=== PATIENT | female | born 1955 | race Caucasian/White ===

== ENCOUNTER 2021-03-01 03:09 | Inpatient (IN) | payer MEDICARE, MEDICAID ==
[~2021-03-01] VITALS: Ht 149.9 cm; Wt 65.0 kg
[2021-03-01] MEDS ORDERED: normal saline 1000ml 1,000 ML IV ONE (04:40)
[2021-03-01] MEDS ORDERED: LIDOcaine Viscous 15ml cup MM ONE (04:40)
[2021-03-01] MEDS ORDERED: mag hydrox/Alum hydrox/simeth 30ml oral suspension PO ONE (04:40)
[2021-03-01] MEDS ORDERED: famotidine/PF 10 mg/ml inj IV ONE (04:40)
[2021-03-01] MEDS ORDERED: pantoprazole 40MG/D5 100ML BAG 100 ML IV ONE (04:40)
[2021-03-01] MEDS ORDERED: proCHLORperazine 10 MG/2 ml inj IV ONE (04:40)
[2021-03-01] MEDS ORDERED: pantoprazole 40MG/NS 100ML BAG 100 ML IV ONE (04:41)
[2021-03-01 05:00] LABS: CLARITY,URINE CLEAR (Clear); GLUCOSE, URINE >=1000 mg/dl (Neg); KETONES,URINE 15 mg/dl (Neg); LEUKOCYTE ESTERASE ,URINE NEGATIVE (Neg); NITRITES, URINE NEGATIVE (Neg); OCCULT BLOOD,URINE SMALL (Neg); PH,URINE 7.5 (4.8-8.0); PROTEIN,URINE 100 mg/dl (Neg); UROBILINOGEN,URINE 0.2 E.U/dL (0.2-1.0)
[2021-03-01 05:03] LABS: COLOR,URINE STRAW (Yellow); UA COLLECTION TYPE FOLEY CATH
[2021-03-01 05:04] LABS: BASOPHILS % (AUTO) 0.2 % (0-1); EOSINOPHILS % (AUTO) 0.1 % (0-6); HEMATOCRIT 34.2 % (35.0-45.0); HEMOGLOBIN 11.7 g/dl (12.0-16.0); LYMPHOCYTES # (AUTO) 0.9 X10'3 (1.1-4.8); MEAN CORPUSCULAR HEMOGLOBIN 30.5 PG (27.0-31.0); MEAN CORPUSCULAR HGB CONC 34.2 g/dL (33.0-36.5); MEAN CORPUSCULAR VOLUME 89.1 FL (78-98); MEAN PLATELET VOLUME 8.3 FL (7.4-10.4); MONOCYTES # (AUTO) 0.2 X10'3 (0-0.9); MONOCYTES % (AUTO) 3.1 % (2-12); NEUTROPHILS % (AUTO) 83.6 % (42-75); PLATELET COUNT 188 X10'3 (140-440); RED BLOOD COUNT 3.84 X10'6 (4.20-5.60); RED CELL DISTRIBUTION WIDTH 14.1 % (11.5-14.5); WHITE BLOOD COUNT 7.2 X10'3 (4.5-11.0)
[2021-03-01 05:10] LABS: BACTERIA,URINE 4+ /HPF (Neg); SQUAMOUS EPITHELIAL CELL,UR FEW /LPF (FEW)
[2021-03-01 05:16] LABS: ALANINE AMINOTRANSFERASE 16 U/L (12-78); ALBUMIN 3.6 G/DL (3.4-5.0); ALBUMIN/GLOBULIN RATIO 0.9 (1.1-1.5); ALKALINE PHOSPHATASE 97 IU/L (46-116); ANION GAP 13 (8-16); ASPARTATE AMINO TRANSFERASE 15 U/L (10-37); BILIRUBIN,TOTAL 0.8 MG/DL (0.1-1.0); BLOOD UREA NITROGEN 16 MG/DL (7-18); BUN/CREATININE RATIO 13.1 (6.6-38.0); CALCIUM 8.9 MG/DL (8.5-10.1); CHLORIDE 99 MMOL/L (99-107); CREATININE 1.22 MG/DL (0.40-0.90); GLUCOSE 344 MG/DL (70-104); POTASSIUM 3.8 MMOL/L (3.5-5.1); SODIUM 137 MMOL/L (135-145); TOTAL CARBON DIOXIDE 25.2 MMOL/L (24-32); TOTAL PROTEIN 7.7 G/DL (6.4-8.2); eGFR 44 ML/MIN
[2021-03-01 05:19] LABS: LIPASE < 50 U/L (73-393)
[2021-03-01] MEDS ORDERED: aspirin 325mg tablet PO ONE (05:30)
[2021-03-01] MEDS ORDERED: heparin 10,000 units/1 ML INJ IV ONE ×2 (05:30→05:35)
[2021-03-01] MEDS ORDERED: heparin 25,000 UNIT/250ml bag 250 ML IV SCH (05:30)
[2021-03-01] MEDS ORDERED: heparin 10,000 units/1 ML INJ IV PRN (05:30)
[2021-03-01] MEDS ORDERED: morphine 4 MG/ML inj SYRINge IV ONE (05:35)
[2021-03-01 06:40] LABS: APTT 23 SECONDS (22-32)
[2021-03-01] MEDS ORDERED: CefTRIAXone/D5W-Rocephin 1gm 50 ML IV ONE (07:15)
[2021-03-01] MEDS ORDERED: MESSAGE TO PHARMACY PO ONE (07:20)
[2021-03-01] MEDS: normal saline 1000ml 1,000 ML IV SCH ×2 (07:20→20:57)
[2021-03-01] MEDS ORDERED: dextrose ORAL solution 15 GM/59 ML bottle PO PRN ×2 (07:20)
[2021-03-01] MEDS ORDERED: ondansetron/PF 4mg/2ml inj IV PRN (07:20)
[2021-03-01] MEDS ORDERED: acetaminophen 325mg tablet PO PRN ×2 (07:20)
[2021-03-01] MEDS ORDERED: glucagon, human recombinant 1mg kit SUBCUT PRN (07:20)
[2021-03-01] MEDS ORDERED: HYDROcodone/acetaminophen 10/325mg tab PO PRN (07:20)
[2021-03-01] MEDS ORDERED: morphine 2 MG/ML inj. syringe IV PRN ×2 (07:20)
[2021-03-01] MEDS ORDERED: dextrose 50%-water 50ml dispensing syringe IV PRN ×2 (07:20)
[2021-03-01] MEDS ORDERED: HYDROcodone/acetaminophen 5mg/325mg tablet PO PRN (07:20)
[2021-03-01] MEDS: CefTRIAXone 2gm/D5W 50ml BAG 50 ML IV SCH (07:26)
[2021-03-01 07:42] LABS: HEMOGLOBIN A1C 8.3 % (4.5-6.2)
--- NOTE | 2021-03-01 07:45 | NUR ---
DAUGHTER KALEB ADKINS [phone]
[2021-03-01 08:21] LABS: COLOR,URINE YELLOW (Yellow); GLUCOSE, URINE >=1000 mg/dl (Neg); KETONES,URINE 15 mg/dl (Neg); LEUKOCYTE ESTERASE ,URINE NEGATIVE (Neg); NITRITES, URINE POSITIVE (Neg); OCCULT BLOOD,URINE SMALL (Neg); PROTEIN,URINE >=300 mg/dl (Neg); UROBILINOGEN,URINE 0.2 E.U/dL (0.2-1.0)
[2021-03-01 08:35] LABS: CLARITY,URINE SLIGHTLY CLOUDY (Clear); UA COLLECTION TYPE FOLEY CATH
[2021-03-01 08:48] LABS: BACTERIA,URINE 3+ /HPF (Neg); RBC,URINE 0-2 /HPF (0-2)
[2021-03-01 08:49] LABS: COARSE GRANULAR CAST 0-3 /LPF (NEGATIVE); MUCUS STRANDS NONE SEEN /LPF (Neg); SQUAMOUS EPITHELIAL CELL,UR NONE SEEN /LPF (FEW)
--- NOTE | 2021-03-01 09:21 | NUR ---
SPOKE WITH DR. WELSH. STATES, STOP THE HEPARIN DRIP PER PHARMACIST REQUEST.
[2021-03-01] MEDS ORDERED: ASPI-611 PO (10:25)
[2021-03-01] MEDS ORDERED: FENT1PAT10 TP (10:25)
[2021-03-01] MEDS ORDERED: LEVO50TA PO (10:25)
[2021-03-01] MEDS ORDERED: ATOR40TA14 PO (10:25)
[2021-03-01] MEDS ORDERED: PANT-47 PO (10:25)
[2021-03-01] MEDS ORDERED: ALLO100T49 PO (10:25)
[2021-03-01] MEDS ORDERED: ONDA4TAB12 PO (10:25)
[2021-03-01] MEDS ORDERED: PROP40TA7 PO (10:25)
[2021-03-01] MEDS ORDERED: LISI20TA28 PO (10:25)
[2021-03-01] MEDS ORDERED: VITA-268 PO (10:25)
[2021-03-01] MEDS ORDERED: CYAN-34 PO (10:33)
--- NOTE | 2021-03-01 10:35 | NUR ---
LAB CALLED [facility], INFORMED DR. WELSH.
[2021-03-01] MEDS ORDERED: INSU100V43 SQ (11:01)
[2021-03-01] MEDS ORDERED: INSU100V9 SQ (11:01)
--- NOTE | 2021-03-01 11:32 | NUR ---
[phone]
--- NOTE | 2021-03-01 12:14 | NUR ---
CALLED DR. WELSH. PT CONTINUES TO BE NPO
[2021-03-01] MEDS: insulin Lispro (HumaLOG) vial - multi-dose SQ SCH ×2 (12:15→13:37)
[2021-03-01] MEDS: propranolol 40mg tablet PO SCH (16:42)
[2021-03-01] MEDS: lisinopril 20mg tablet PO SCH (16:42)
--- NOTE | 2021-03-01 16:44 | NUR ---
pt c/o nausea, zofran 4mg iv given.
[2021-03-01] MEDS: ondansetron/PF 4mg/2ml inj IV SCH ×2 (20:40→21:10)
[2021-03-01] MEDS: allopurinol 100mg tablet PO SCH (20:46)
[2021-03-01] MEDS: pantoprazole 40mg Tablet.DR PO SCH (20:46)
[2021-03-01] MEDS: insulin glargine (Lantus) pen - multi-dose SQ SCH (20:49)
[2021-03-01] MEDS: heparin, porcine 5000 units/ml vial SQ SCH (20:50)
[2021-03-01] MEDS ORDERED: temazepam 15mg capsule PO PRN (21:00)
[2021-03-02 02:00] VITALS: BP 138/60
[2021-03-02] MEDS: normal saline 1000ml 1,000 ML IV SCH ×3 (02:40→19:52)
[2021-03-02] MEDS: ondansetron/PF 4mg/2ml inj IV SCH ×4 (04:00→20:00)
[2021-03-02 06:00] VITALS: BP 128/74
[2021-03-02] MEDS: levoTHYROXINE 25mcg tablet PO SCH ×2 (07:00→12:55)
[2021-03-02 07:14] LABS: BASOPHILS % (AUTO) 0.4 % (0-1); EOSINOPHILS % (AUTO) 0.4 % (0-6); HEMATOCRIT 29.3 % (35.0-45.0); LYMPHOCYTES # (AUTO) 2.2 X10'3 (1.1-4.8); LYMPHOCYTES % (AUTO) 34.6 % (21-51); MEAN CORPUSCULAR HEMOGLOBIN 30.5 PG (27.0-31.0); MEAN CORPUSCULAR HGB CONC 34.2 g/dL (33.0-36.5); MEAN CORPUSCULAR VOLUME 89.3 FL (78-98); MEAN PLATELET VOLUME 8.5 FL (7.4-10.4); MONOCYTES # (AUTO) 0.6 X10'3 (0-0.9); MONOCYTES % (AUTO) 9.2 % (2-12); NEUTROPHILS # (AUTO) 3.6 X10'3 (1.8-7.7); NEUTROPHILS % (AUTO) 55.4 % (42-75); PLATELET COUNT 170 X10'3 (140-440); RED BLOOD COUNT 3.28 X10'6 (4.20-5.60); RED CELL DISTRIBUTION WIDTH 14.6 % (11.5-14.5); WHITE BLOOD COUNT 6.4 X10'3 (4.5-11.0)
[2021-03-02 07:27] LABS: ALANINE AMINOTRANSFERASE 14 U/L (12-78); ALBUMIN 2.8 G/DL (3.4-5.0); ALBUMIN/GLOBULIN RATIO 0.8 (1.1-1.5); ALKALINE PHOSPHATASE 71 IU/L (46-116); ANION GAP 7 (8-16); ASPARTATE AMINO TRANSFERASE 14 U/L (10-37); BILIRUBIN,TOTAL 0.4 MG/DL (0.1-1.0); BLOOD UREA NITROGEN 38 MG/DL (7-18); BUN/CREATININE RATIO 18.7 (6.6-38.0); CHLORIDE 102 MMOL/L (99-107); CREATININE 2.03 MG/DL (0.40-0.90); GLUCOSE 163 MG/DL (70-104); POTASSIUM 3.1 MMOL/L (3.5-5.1); SODIUM 136 MMOL/L (135-145); TOTAL CARBON DIOXIDE 27.4 MMOL/L (24-32); TOTAL PROTEIN 6.2 G/DL (6.4-8.2); eGFR 25 ML/MIN
[2021-03-02] MEDS: propranolol 40mg tablet PO SCH ×2 (08:00→12:56)
[2021-03-02] MEDS: atorvastatin 20mg tablet PO SCH ×2 (08:00→12:55)
[2021-03-02] MEDS: aspirin 81mg, enteric-coated 1 TAB TABLET.DR PO SCH ×2 (08:00→12:55)
[2021-03-02] MEDS: allopurinol 100mg tablet PO SCH ×2 (08:00→19:22)
[2021-03-02] MEDS: pantoprazole 40mg Tablet.DR PO SCH ×2 (08:00→19:23)
[2021-03-02] MEDS: lactobacillus rhamnosus 10,000 MMU CELLS/CAPSULE PO SCH ×2 (08:00→12:55)
[2021-03-02] MEDS: lisinopril 20mg tablet PO SCH ×2 (08:00→12:55)
[2021-03-02] MEDS: CefTRIAXone 2gm/D5W 50ml BAG 50 ML IV SCH (09:59)
[2021-03-02] MEDS: heparin, porcine 5000 units/ml vial SQ SCH ×2 (09:59→19:23)
[2021-03-02 11:00] VITALS: BP 151/48
[2021-03-02] MEDS ORDERED: bisacodyl 10mg suppository rectal RC PRN (12:05)
[2021-03-02] MEDS ORDERED: magnesium 2GM in 50ml NS 50 ML IV PRN (12:10)
[2021-03-02] MEDS ORDERED: potassium Cl 20 mEq SR tablet PO PRN ×2 (12:10)
[2021-03-02] MEDS ORDERED: potassium CL 10mEq/100ml bag 100 ML IV PRN (12:10)
[2021-03-02] MEDS ORDERED: magnesium Cl slow-release 64mg tablet PO PRN (12:10)
[2021-03-02] MEDS ORDERED: magnesium 4gm in 100ml NS 100 ML IV PRN (12:10)
[2021-03-02] MEDS: insulin Lispro (HumaLOG) vial - multi-dose SQ SCH ×2 (12:51→19:38)
--- NOTE | 2021-03-02 14:21 | NUR ---
Per EMR pt with T1DM with A1c 8.3%. Pt admit for N/V and abdominal pain. Pt deaf per H&P. Written DM education with RD contact information placed in patient's chart. Will remain available. Addendum: 03/02/21 at [address] Amended: Links added.
[2021-03-02 15:00] VITALS: BP 150/48
[2021-03-02] MEDS ORDERED: lactulose 20gm/30ml cup PO ONE (16:00)
[2021-03-02] MEDS ORDERED: metoclopramide 10mg tablet PO PRN (17:55)
[2021-03-02 18:00] VITALS: BP 129/72
--- NOTE | 2021-03-02 18:00 | NUR ---
Problems reprioritized. Patient report given, questions answered & plan of care reviewed with Solange PLUMMER.
[2021-03-02] MEDS: K and/or MAG REPLACEMENT MC SCH (19:24)
[2021-03-02 22:00] VITALS: BP 153/48
[2021-03-02] MEDS: insulin glargine (Lantus) pen - multi-dose SQ SCH (22:05)
[2021-03-03 02:00] VITALS: BP 130/74
[2021-03-03] MEDS: ondansetron/PF 4mg/2ml inj IV SCH ×4 (04:00→08:28)
[2021-03-03] MEDS: normal saline 1000ml 1,000 ML IV SCH (05:09)
[2021-03-03 06:00] VITALS: BP 128/68
[2021-03-03 06:44] LABS: BASOPHILS % (AUTO) 0.6 % (0-1); EOSINOPHILS # (AUTO) 0.1 X10'3 (0-0.9); EOSINOPHILS % (AUTO) 2.1 % (0-6); HEMATOCRIT 28.8 % (35.0-45.0); HEMOGLOBIN 9.7 g/dl (12.0-16.0); LYMPHOCYTES % (AUTO) 47.6 % (21-51); MEAN CORPUSCULAR HEMOGLOBIN 30.4 PG (27.0-31.0); MEAN CORPUSCULAR HGB CONC 33.6 g/dL (33.0-36.5); MEAN CORPUSCULAR VOLUME 90.4 FL (78-98); MEAN PLATELET VOLUME 8.3 FL (7.4-10.4); MONOCYTES # (AUTO) 0.4 X10'3 (0-0.9); NEUTROPHILS # (AUTO) 1.7 X10'3 (1.8-7.7); NEUTROPHILS % (AUTO) 40.7 % (42-75); PLATELET COUNT 145 X10'3 (140-440); RED BLOOD COUNT 3.18 X10'6 (4.20-5.60); RED CELL DISTRIBUTION WIDTH 14.3 % (11.5-14.5); WHITE BLOOD COUNT 4.2 X10'3 (4.5-11.0)
[2021-03-03 07:15] LABS: ALANINE AMINOTRANSFERASE 15 U/L (12-78); ALBUMIN 2.7 G/DL (3.4-5.0); ALBUMIN/GLOBULIN RATIO 0.9 (1.1-1.5); ALKALINE PHOSPHATASE 68 IU/L (46-116); ANION GAP 8 (8-16); ASPARTATE AMINO TRANSFERASE 10 U/L (10-37); BILIRUBIN,TOTAL 0.3 MG/DL (0.1-1.0); BLOOD UREA NITROGEN 30 MG/DL (7-18); BUN/CREATININE RATIO 19.9 (6.6-38.0); CALCIUM 7.9 MG/DL (8.5-10.1); CHLORIDE 107 MMOL/L (99-107); CREATININE 1.51 MG/DL (0.40-0.90); GLUCOSE 163 MG/DL (70-104); POTASSIUM 3.6 MMOL/L (3.5-5.1); SODIUM 140 MMOL/L (135-145); TOTAL CARBON DIOXIDE 24.7 MMOL/L (24-32); TOTAL PROTEIN 5.8 G/DL (6.4-8.2); eGFR 34 ML/MIN
[2021-03-03] MEDS: K and/or MAG REPLACEMENT MC SCH (08:00)
[2021-03-03] MEDS: CefTRIAXone 2gm/D5W 50ml BAG 50 ML IV SCH (08:00)
[2021-03-03] MEDS: heparin, porcine 5000 units/ml vial SQ SCH (08:22)
[2021-03-03] MEDS: allopurinol 100mg tablet PO SCH (08:22)
[2021-03-03 08:23] VITALS: BP_SYST 128
[2021-03-03] MEDS: pantoprazole 40mg Tablet.DR PO SCH (08:23)
[2021-03-03] MEDS: lisinopril 20mg tablet PO SCH (08:23)
[2021-03-03] MEDS: lactobacillus rhamnosus 10,000 MMU CELLS/CAPSULE PO SCH (08:23)
[2021-03-03] MEDS: propranolol 40mg tablet PO SCH (08:23)
[2021-03-03] MEDS: atorvastatin 20mg tablet PO SCH (08:24)
[2021-03-03] MEDS: aspirin 81mg, enteric-coated 1 TAB TABLET.DR PO SCH (08:25)
[2021-03-03] MEDS: levoTHYROXINE 25mcg tablet PO SCH (08:26)
--- NOTE | 2021-03-03 08:40 | NUR ---
Multiple med times on Zofran missed over more than 24 hours. unknown why not given. Non admin done to restore correct timing. Also other meds Lipitor Levothyroxine were documented against current dosing.
[2021-03-03] MEDS ORDERED: CEFD300C3 PO (10:49)
[2021-03-03] MEDS ORDERED: METH1TAB32 PO (10:49)
--- NOTE | 2021-03-03 11:59 | NUR ---
DC teaching complete. Pt able to read instructions. MRSA nasal swab was +. info page with written explanation provide. Pt verbalized understanding. Home meds returned to pt who verified all meds were present. Pt pending ride availability shortly.
== END 2021-03-03 12:55 | disposition home health service (06) | DRG 698 ==
LOC: ER 03:10 → ED HOLD 07:21 → EDBEDREQ 21:05 → PCU 3S 21:52
PROVIDERS: ADMIT Internal Medicine; ATTEND Internal Medicine
PROC: BW211ZZ Computerized Tomography (CT Scan) of Abdomen and Pelvis using Low Osmolar Contrast (ICD-10-PCS; principal; 2021-03-01)
DX: T83.510A Infection and inflammatory reaction due to cystostomy catheter, initial encounter (principal); I21.A1 Myocardial infarction type 2; N39.0 Urinary tract infection, site not specified; Z20.822 Contact with and (suspected) exposure to COVID-19; D63.8 Anemia in other chronic diseases classified elsewhere; E03.9 Hypothyroidism, unspecified; E11.22 Type 2 diabetes mellitus with diabetic chronic kidney disease; E11.65 Type 2 diabetes mellitus with hyperglycemia; E78.5 Hyperlipidemia, unspecified; R11.15 Cyclical vomiting syndrome unrelated to migraine; M10.9 Gout, unspecified; M79.675 Pain in left toe(s); E87.6 Hypokalemia; F12.90 Cannabis use, unspecified, uncomplicated; I12.9 Hypertensive chronic kidney disease with stage 1 through stage 4 chronic kidney disease, or unspecified chronic kidney disease; K29.70 Gastritis, unspecified, without bleeding; K59.09 Other constipation; N18.9 Chronic kidney disease, unspecified; Y84.6 Urinary catheterization as the cause of abnormal reaction of the patient, or of later complication, without mention of misadventure at the time of the procedure; Y92.89 Other specified places as the place of occurrence of the external cause; Z85.528 Personal history of other malignant neoplasm of kidney; Z87.440 Personal history of urinary (tract) infections; Z88.8 Allergy status to other drugs, medicaments and biological substances; Z90.5 Acquired absence of kidney; B96.5 Pseudomonas (aeruginosa) (mallei) (pseudomallei) as the cause of diseases classified elsewhere; B95.2 Enterococcus as the cause of diseases classified elsewhere; B96.4 Proteus (mirabilis) (morganii) as the cause of diseases classified elsewhere; H91.90 Unspecified hearing loss, unspecified ear
CPT/HCPCS: 36415; 71045; 74176; 80053; 81001; 82948; 83036; 83605; 83690; 84132; 84484; 85025; 85610; 85730; 87040; 87077; 87081; 87088; 87186; 87635; 93005; 93306; 99285; C9113; C9803; G0378; J0696; J0780; J1644; J1815; J2270; J2405; J3490; J7030

== ENCOUNTER 2022-01-02 12:23 | Emergency (ER) | payer MEDICAID, MEDICARE ==
[~2022-01-02] VITALS: Ht 152.4 cm; Wt 68.2 kg
[~2022-01-02 12:23] MED LIST: ALLO100T49 PO; ASPI-611 PO; ATOR40TA14 PO; CYAN-34 PO; FENT1PAT10 TP; INSU100V43 SQ; INSU100V9 SQ; LEVO50TA PO; LISI20TA28 PO; METH1TAB32 PO; ONDA4TAB12 PO; PANT-47 PO; PROP40TA7 PO
[2022-01-02 14:13] VITALS: BP 152/45
== END 2022-01-02 17:40 | disposition home or self-care (01) ==
LOC: ER 12:24
DX: T83.098A Other mechanical complication of other urinary catheter, initial encounter (principal); E11.9 Type 2 diabetes mellitus without complications; Z88.1 Allergy status to other antibiotic agents; Z79.899 Other long term (current) drug therapy; Z79.82 Long term (current) use of aspirin; Z79.84 Long term (current) use of oral hypoglycemic drugs
CPT/HCPCS: 51702; 99284

== ENCOUNTER 2023-09-30 09:00 | Outpatient (CLI) | payer MEDICARE, MEDICAID ==
[~2023-09-30 09:00] MED LIST changes: -INSU100V43 SQ; +INSU100V49 SQ; +ONDA-243 PO; -ONDA4TAB12 PO
== END 2023-09-30 23:59 | disposition home or self-care (01) ==
LOC: CARD DIAG 09:00
PROVIDERS: ATTEND Family Medicine
DX: I34.81 Nonrheumatic mitral (valve) annulus calcification (principal); I10 Essential (primary) hypertension
CPT/HCPCS: 93306